=== PATIENT | male | born 1980 | race Caucasian/White ===

== ENCOUNTER 2017-06-29 08:34 | Emergency (ER) | payer OTHER ==
[~2017-06-29] VITALS: Ht 180.3 cm; Wt 122.0 kg
[2017-06-29] MEDS ORDERED: TYLENOL EXTRA500 MG PO (08:47)
[2017-06-29] MEDS ORDERED: ULTRAM 50MG TAB50 MG PO (11:51)
[2017-06-29 11:58] VITALS: BP 158/98
[2017-06-30] MEDS ORDERED: IBUPROFEN 800800 MG PO (11:17)
[2017-06-30] MEDS ORDERED: NORCO 5-325 TA1 EACH PO (11:17)
== END 2017-06-29 12:03 | disposition home or self-care (01) ==
LOC: M.ERS 08:34
DX: M25.421 Effusion, right elbow (principal); F17.210 Nicotine dependence, cigarettes, uncomplicated

== ENCOUNTER 2017-06-30 10:36 | Emergency (ER) | payer OTHER ==
[~2017-06-30] VITALS: Ht 180.3 cm; Wt 122.0 kg
[~2017-06-30 10:36] MED LIST: TYLENOL EXTRA500 MG PO; ULTRAM 50MG TAB50 MG PO
[2017-06-30 10:46] VITALS: BP 156/95
[2017-06-30] MEDS ORDERED: IBUPROFEN 800800 MG PO (11:17)
[2017-06-30] MEDS ORDERED: NORCO 5-325 TA1 EACH PO (11:17)
== END 2017-06-30 11:24 | disposition home or self-care (01) ==
LOC: M.ERS 10:36
DX: M25.421 Effusion, right elbow (principal)

== ENCOUNTER 2017-08-07 10:10 | Emergency (ER) | payer OTHER ==
[~2017-08-07] VITALS: Ht 177.8 cm; Wt 117.9 kg
[~2017-08-07 10:10] MED LIST changes: +IBUPROFEN 800800 MG PO; +NORCO 5-325 TA1 EACH PO
[2017-08-07] MEDS ORDERED: COLCHICINE0.6 MG PO ×2 (10:43→10:48)
[2017-08-07] MEDS ORDERED: NAPROSYN500 MG PO ×2 (10:43→10:48)
[2017-08-07] MEDS ORDERED: ALLOPURINOL 10100 M1 PO (10:48)
[2017-08-07 11:00] VITALS: BP 152/97
== END 2017-08-07 11:01 | disposition home or self-care (01) ==
LOC: M.ERS 10:10
DX: M10.9 Gout, unspecified (principal)

== ENCOUNTER 2017-09-21 10:46 | Emergency (ER) | payer OTHER ==
[~2017-09-21] VITALS: Ht 180.3 cm; Wt 117.9 kg
[~2017-09-21 10:46] MED LIST changes: +ALLOPURINOL 10100 M1 PO; +COLCHICINE0.6 MG PO; +NAPROSYN500 MG PO
[2017-09-21 11:56] LABS: HEMATOCRIT 45.7 % (42.0-52.0); HEMOGLOBIN 14.9 gm/dL (14.0-18.0); MCH 26.9 pg (26.0-34.0); MCHC 32.5 g/dL (28.0-37.0); MCV 82.8 fL (80.0-100.0); MPV 9.3 fl. (7.2-11.1); NUCLEATED RBCS 0 /100WBC; PLATELET COUNT* 305 thou/uL (150-400); RBC 5.52 mil/uL (4.50-6.00)
[2017-09-21 12:03] LABS: CALCIUM 9.6 mg/dL (8.5-10.1); CREATININE 1.2 mg/dL (0.6-1.3); POTASSIUM 3.9 mmol/L (3.5-5.1)
[2017-09-21 12:09] LABS: TOTAL BILIRUBIN 0.9 mg/dL (<0.1-1.0); TOTAL PROTEIN 8.4 g/dL (6.4-8.2); URIC ACID* 8.8 mg/dL (2.6-7.2)
[2017-09-21 12:34] LABS: ABSOLUTE MONOCYTES 0.5 thou/uL (0.0-1.2); ABSOLUTE NEUTROPHILS 11.6 thou/uL (1.6-8.1); PLATELET ESTIMATE ADEQUATE
[2017-09-21 12:35] LABS: ANISOCYTOSIS 1+; POIKILOCYTOSIS 1+; POLYCHROMASIA 1+
[2017-09-21 13:05] LABS: ESR (SEDRATE) 35 mm/hr (0-15)
[2017-09-21] MEDS ORDERED: NORCO 5-325 TA1 EACH PO (13:32)
[2017-09-21] MEDS ORDERED: MEDROLDOSEPACK PO (13:32)
[2017-09-21 13:48] VITALS: BP 134/80
== END 2017-09-21 13:49 | disposition home or self-care (01) ==
LOC: M.ERS 10:46
PROVIDERS: Nurse Practitioner Family
DX: M10.9 Gout, unspecified (principal); R11.2 Nausea with vomiting, unspecified; F17.200 Nicotine dependence, unspecified, uncomplicated

== ENCOUNTER 2018-02-11 20:30 | Emergency (ER) | payer OTHER ==
[~2018-02-11] VITALS: Ht 180.3 cm; Wt 117.9 kg
[~2018-02-11 20:30] MED LIST changes: +MEDROLDOSEPACK PO
[2018-02-11] MEDS ORDERED: ALLOPURINOL 10100 M1 PO (20:40)
[2018-02-11] MEDS ORDERED: COZAAR 25 MG TA25 M1 (20:40)
[2018-02-11 21:21] VITALS: BP 140/90
== END 2018-02-11 21:22 | disposition home or self-care (01) ==
LOC: M.ERS 20:30
DX: M79.642 Pain in left hand (principal); M10.9 Gout, unspecified

== ENCOUNTER 2019-04-27 20:36 | Emergency (ER) | payer OTHER ==
[~2019-04-27] VITALS: Ht 154.9 cm; Wt 120.2 kg
[~2019-04-27 20:36] MED LIST changes: +COZAAR 25 MG TA25 M1
[2019-04-27] MEDS ORDERED: KEFLEX500 M1 PO (21:15)
[2019-04-27] MEDS ORDERED: NORCO 5-325 TA1 EAC1 PO (21:15)
[2019-04-27 21:39] VITALS: BP 132/82
== END 2019-04-27 21:39 | disposition home or self-care (01) ==
LOC: M.ERS 20:36
DX: S05.02XA Injury of conjunctiva and corneal abrasion without foreign body, left eye, initial encounter (principal); I10 Essential (primary) hypertension; M10.9 Gout, unspecified; Z98.890 Other specified postprocedural states; X58.XXXA Exposure to other specified factors, initial encounter; Y92.89 Other specified places as the place of occurrence of the external cause; Y93.89 Activity, other specified; Y99.8 Other external cause status